=== PATIENT | female | born 1930 | race Caucasian/White ===

== ENCOUNTER 2017-11-16 10:05 | Inpatient (IN) | payer MEDICARE, OTHER ==
[2017-11-16] MEDS ORDERED: IODIXANOL LOCM 100 ML BTL (10:07)
[2017-11-16] MEDS ORDERED: SOD CHLORIDE 0.9% 100 ML (10:07)
[2017-11-16 10:19] LABS: ADD MAN DIFF? NO
[2017-11-16 10:24] LABS: WHITE BLOOD COUNT 7.2 10^3/ul (4.8-10.8)
[2017-11-16 10:24] LABS: BASOPHILS % 0.6 % (0.0-2.0); EOSINOPHILS # 0.4 10^3/ul (0.0-0.5); EOSINOPHILS % 5.2 % (0.0-7.0); HEMATOCRIT 24.2 % (37.0-47.0); HEMOGLOBIN 7.6 g/dl (12.0-16.0); LYMPHOCYTES # 1.5 10^3/ul (0.8-2.9); LYMPHOCYTES % 20.5 % (15.0-51.0); MEAN CORPUSCULAR HEMOGLOBIN 35.3 pg (29.0-33.0); MEAN CORPUSCULAR HGB CONC 31.4 g/dl (32.0-37.0); MEAN CORPUSCULAR VOLUME 112.6 fl (82.0-101.0); MEAN PLATELET VOLUME 11.4 fl (7.4-10.4); MONOCYTE # 0.8 10^3/ul (0.3-0.9); MONOCYTES % 10.5 % (0.0-11.0); NEUTROPHIL # 4.5 10^3/ul (1.6-7.5); NEUTROPHILS % 62.8 % (39.0-77.0); PLATELET COUNT 123 10^3/UL (140-415); RED BLOOD COUNT 2.15 10^6/ul (4.20-5.40); RED CELL DISTRIBUTION WIDTH 21.9 % (11.5-14.5)
[2017-11-16 10:41] LABS: INR 1.12; PROTIME 14.6 Sec (11.9-14.9); PT RATIO 1.1
[2017-11-16 10:42] LABS: ANION GAP 11 (8-16); BLOOD UREA NITROGEN 21 mg/dl (7-20); CALCIUM 8.7 mg/dl (8.4-10.2); CARBON DIOXIDE 29 mmol/L (21-31); CHLORIDE 101 mmol/L (97-110); CHOL/HDL RATIO 1.5 RATIO; CHOLESTEROL 106 mg/dl (100-200); CREATININE 1.89 mg/dl (0.44-1.00); GLUCOSE 149 mg/dl (70-220); HDL CHOLESTEROL 68 mg/dl (33-92); LDL CHOLESTEROL,CALCULATED 28 mg/dl; PARTIAL THROMBOPLASTIN TIME 43.9 Sec (25.0-35.0); SODIUM 138 mmol/L (135-144); TRIGLYCERIDES 49 mg/dl (0-149)
[2017-11-16 10:53] LABS: TROPONIN-I 0.039 ng/ml (0.00-0.12)
[2017-11-16] MEDS: POTASSIUM CHLORIDE (SR) 20 MEQ TAB PO (11:06)
[2017-11-16] MEDS: ASPIRIN 325 MG TAB PO (11:06)
[2017-11-16] MEDS: ASPIRIN 300 MG SUPP PR (11:22)
[2017-11-16] MEDS ORDERED: POTASSIUM CHLORIDE 50 ML IVPB (11:30)
[2017-11-16] MEDS ORDERED: ONDANSETRON 4 MG INJ IV ×2 (11:30→13:30)
[2017-11-16] MEDS ORDERED: ACETAMINOPHEN 325 MG TAB PO (11:30)
[2017-11-16] MEDS: POTASSIUM CHLORIDE 10 MEQ in SOD CHLORIDE 0.9% 50 ML IVPB (11:34)
[2017-11-16 13:29] LABS: RETICULOCYTE COUNT # 0.094 X10^6 (0.020-0.110); RETICULOCYTE COUNT % 4.3 % (0.5-1.5)
[2017-11-16 13:29] LABS: RETICULOCYTE RBC 2.16
[2017-11-16] MEDS ORDERED: GLUCOSE GEL 15 GRAM TUBE PO ×2 (13:30)
[2017-11-16] MEDS ORDERED: DEXTROSE 50% 50 ML SYRINGE IV ×2 (13:30)
[2017-11-16] MEDS ORDERED: MAGNESIUM HYDROXIDE 30ML CUP PO (13:30)
[2017-11-16] MEDS ORDERED: GLUCOSE GEL 15 GRAM TUBE BUCCAL (13:30)
[2017-11-16] MEDS ORDERED: NACL 0.9% 3 ML SYG IV (13:30)
[2017-11-16] MEDS ORDERED: ZOLPIDEM 5 MG TAB PO (13:30)
[2017-11-16] MEDS ORDERED: ACETAMINOPHEN 650 MG SUPP PR (13:30)
[2017-11-16] MEDS ORDERED: GLUCAGON 1 MG INJ IM (13:30)
[2017-11-16 13:31] LABS: IRON 66 ug/dl (35-150)
[2017-11-16 13:36] LABS: URIC ACID 1.9 mg/dl (3.1-7.9)
[2017-11-16 13:40] LABS: % IRON SATURATION 30 % SAT (22-52); TOTAL IRON BINDING CAPACITY 218 ug/dl (241-421)
[2017-11-16 14:03] LABS: AADO2 Arterial 41.1 mmHg (7.0-24.0); Allen Test ACCEPTAB; Arterial Base Excess 2.1 mmol/L (-3.0-3); Arterial Blood Gas Oxygen Sat 99.7 mmHG (95.0-100.0); Arterial Fraction of Oxyhgb 98.3 % (93.0-99.0); Arterial HCO3 27.5 mmol/L (22.0-26.0); Arterial MetHb 0.4 % (0.0-1.5); Arterial Total Hemglobin 8.5 g/dl (12.0-18.0); Arterial pCO2 47.5 mmhg (35-45); MODE MASK - SIMPLE; Site Right Radial
[2017-11-16 14:42] LABS: FOLATE 13.7 ng/ml (2.8-20.0)
[2017-11-16 17:25] LABS: CREATINE KINASE 58 IU/L (23-200)
[2017-11-16 17:38] LABS: CK INDEX 4.7; CK-MB 2.71 ng/ml (0.0-2.4); TROPONIN-I 0.037 ng/ml (0.00-0.12)
[2017-11-16] MEDS: SEVELAMER 800 MG TAB PO (17:39)
[2017-11-16] MEDS: INSULIN ASPART [NOVOLOG] 3 ML PEN SC ×2 (17:55→21:00)
[2017-11-16] MEDS ORDERED: PENDING SANTYL ORDER FOR WOUND CARE XX (18:30)
[2017-11-16] MEDS: ATORVASTATIN 40 MG TAB PO (21:00)
[2017-11-16] MEDS: SENNA TAB PO (21:00)
[2017-11-16] MEDS: CILOSTAZOL 100 MG TAB PO (21:00)
[2017-11-16] MEDS: HEPARIN 5,000 UNIT/0.5 ML VIAL SC (21:26)
[2017-11-16 23:56] LABS: CREATINE KINASE 60 IU/L (23-200)
[2017-11-17 00:09] LABS: CK-MB 3.01 ng/ml (0.0-2.4); TROPONIN-I 0.041 ng/ml (0.00-0.12)
[2017-11-17] MEDS: ACCU-CHEK XX (02:00)
[2017-11-17] MEDS: hydrALAzine 20 MG INJ IV ×2 (02:21→18:20)
[2017-11-17] MEDS: LEVOTHYROXINE 75 MCG TAB PO (07:00)
[2017-11-17 07:03] LABS: ADD MAN DIFF? NO
[2017-11-17 07:09] LABS: WHITE BLOOD COUNT 7.4 10^3/ul (4.8-10.8)
[2017-11-17 07:09] LABS: ABNORMAL IP MESSAGE 1; BASOPHIL # 0.1 10^3/ul (0.0-0.1); BASOPHILS % 0.8 % (0.0-2.0); EOSINOPHILS # 0.4 10^3/ul (0.0-0.5); EOSINOPHILS % 5.3 % (0.0-7.0); HEMATOCRIT 25.5 % (37.0-47.0); HEMOGLOBIN 8.1 g/dl (12.0-16.0); LYMPHOCYTES # 1.5 10^3/ul (0.8-2.9); LYMPHOCYTES % 19.9 % (15.0-51.0); MEAN CORPUSCULAR HEMOGLOBIN 35.8 pg (29.0-33.0); MEAN CORPUSCULAR HGB CONC 31.8 g/dl (32.0-37.0); MEAN CORPUSCULAR VOLUME 112.8 fl (82.0-101.0); MEAN PLATELET VOLUME 10.9 fl (7.4-10.4); MONOCYTE # 0.7 10^3/ul (0.3-0.9); MONOCYTES % 8.8 % (0.0-11.0); NEUTROPHIL # 4.8 10^3/ul (1.6-7.5); NEUTROPHILS % 64.8 % (39.0-77.0); PLATELET COUNT 132 10^3/UL (140-415); RED BLOOD COUNT 2.26 10^6/ul (4.20-5.40); RED CELL DISTRIBUTION WIDTH 22.3 % (11.5-14.5)
[2017-11-17 07:15] LABS: HEMOGLOBIN A1C 4.9 % (0-5.9)
[2017-11-17 07:19] LABS: POSITIVE DIFF @See below
[2017-11-17 07:25] LABS: ALANINE AMINOTRANSFERASE 21 IU/L (13-69); ALBUMIN 3.3 g/dl (3.3-4.9); ALBUMIN/GLOBULIN RATIO 0.84; ALKALINE PHOSPHATASE 113 IU/L (42-121); ANION GAP 13 (8-16); ASPARTATE AMINO TRANSFERASE 32 IU/L (15-46); BLOOD UREA NITROGEN 26 mg/dl (7-20); CALCIUM 9.3 mg/dl (8.4-10.2); CARBON DIOXIDE 25 mmol/L (21-31); CHLORIDE 103 mmol/L (97-110); CHOL/HDL RATIO 1.6 RATIO; CHOLESTEROL 113 mg/dl (100-200); GLUCOSE 75 mg/dl (70-220); HDL CHOLESTEROL 68 mg/dl (33-92); LDL CHOLESTEROL,CALCULATED 25 mg/dl; MAGNESIUM 1.8 mg/dl (1.7-2.5); PHOSPHORUS 4.3 mg/dl (2.5-4.9); POTASSIUM 3.2 mmol/L (3.5-5.1); SODIUM 138 mmol/L (135-144); TOTAL PROTEIN 7.2 g/dl (6.1-8.1); TRIGLYCERIDES 98 mg/dl (0-149)
[2017-11-17] MEDS: INSULIN ASPART [NOVOLOG] 3 ML PEN SC ×4 (07:55→20:31)
[2017-11-17] MEDS: INFLUENZA VIRUS VACCINE 0.5 ML SYG IM* (09:00)
[2017-11-17] MEDS: SEVELAMER 800 MG TAB PO ×3 (09:41→17:55)
[2017-11-17] MEDS: CILOSTAZOL 100 MG TAB PO ×2 (09:42→20:32)
[2017-11-17] MEDS: MULTIVITAMINS THERAPEUTIC TAB PO (09:42)
[2017-11-17] MEDS: ASPIRIN 81 MG TAB PO (09:42)
[2017-11-17] MEDS: PANTOPRAZOLE (EC) 40 MG TAB PO (09:43)
[2017-11-17] MEDS: SENNA TAB PO ×2 (09:43→20:32)
[2017-11-17] MEDS: HEPARIN 5,000 UNIT/0.5 ML VIAL SC ×2 (10:12→20:45)
[2017-11-17] MEDS: POTASSIUM CHLORIDE (SR) 20 MEQ TAB PO (12:19)
[2017-11-17] MEDS ORDERED: LACTULOSE 30ML CUP PO (13:00)
[2017-11-17 17:26] LABS: TRANSFERRIN 148 mg/dL (188-341)
[2017-11-17] MEDS ORDERED: HEPARIN 1000 UNITS/ML 10 ML INJ CATHETER (17:30)
[2017-11-17 17:59] LABS: HEPATITIS B SURFACE ANTIBODY NEGATIVE (NEGATIVE)
[2017-11-17] MEDS: PANTOPRAZOLE 40 MG INJ IV ×2 (18:00→18:12)
[2017-11-17] MEDS: HEPARIN 1000 UNITS/ML 10 ML INJ CATHETER (18:09)
[2017-11-17 18:14] LABS: HEPATITIS B SURFACE ANTIGEN NEGATIVE (NEGATIVE)
[2017-11-17] MEDS: ATORVASTATIN 40 MG TAB PO (20:32)
[2017-11-17] MEDS: FAMOTIDINE 20 MG TAB PO (20:32)
[2017-11-17] MEDS: ACETAMINOPHEN 325 MG TAB PO (22:24)
[2017-11-18] MEDS: LORAZEPAM 2 MG INJ IV ×2 (00:23→21:36)
[2017-11-18] MEDS: ACCU-CHEK XX (02:00)
[2017-11-18] MEDS: PANTOPRAZOLE (EC) 40 MG TAB PO (06:00)
[2017-11-18] MEDS: PANTOPRAZOLE 40 MG INJ IV (06:41)
[2017-11-18] MEDS: LEVOTHYROXINE 112 MCG TAB PO (06:41)
[2017-11-18] MEDS: INSULIN ASPART [NOVOLOG] 3 ML PEN SC ×4 (07:55→21:50)
[2017-11-18] MEDS: CILOSTAZOL 100 MG TAB PO ×2 (08:14→21:05)
[2017-11-18] MEDS: SEVELAMER 800 MG TAB PO ×3 (08:15→18:00)
[2017-11-18] MEDS: MULTIVITAMINS THERAPEUTIC TAB PO (08:15)
[2017-11-18] MEDS: ASPIRIN 81 MG TAB PO (08:15)
[2017-11-18] MEDS: SENNA TAB PO ×2 (08:15→21:05)
[2017-11-18] MEDS: HEPARIN 5,000 UNIT/0.5 ML VIAL SC ×2 (08:28→21:12)
[2017-11-18] MEDS: VALSARTAN 80 MG TAB PO (08:40)
[2017-11-18] MEDS ORDERED: LACTULOSE 30ML CUP PO (09:00)
[2017-11-18 11:46] LABS: ALANINE AMINOTRANSFERASE 15 IU/L (13-69); ALBUMIN 3.6 g/dl (3.3-4.9); ALKALINE PHOSPHATASE 108 IU/L (42-121); ANION GAP 14 (8-16); ASPARTATE AMINO TRANSFERASE 33 IU/L (15-46); BILIRUBIN,INDIRECT 0.2 mg/dl (0-1.1); BILIRUBIN,TOTAL 0.2 mg/dl (0.2-1.3); BLOOD UREA NITROGEN 20 mg/dl (7-20); CALCIUM 9.2 mg/dl (8.4-10.2); CARBON DIOXIDE 27 mmol/L (21-31); CHLORIDE 100 mmol/L (97-110); CREATININE 2.19 mg/dl (0.44-1.00); GLUCOSE 165 mg/dl (70-220); POTASSIUM 3.7 mmol/L (3.5-5.1); SODIUM 137 mmol/L (135-144); TOTAL PROTEIN 7.6 g/dl (6.1-8.1)
[2017-11-18 11:57] LABS: TROPONIN-I 0.053 ng/ml (0.00-0.12)
[2017-11-18] MEDS: ATORVASTATIN 40 MG TAB PO (21:05)
[2017-11-18] MEDS: FAMOTIDINE 20 MG TAB PO (21:05)
[2017-11-19] MEDS: ACCU-CHEK XX (02:25)
[2017-11-19] MEDS: INSULIN ASPART [NOVOLOG] 3 ML PEN SC ×4 (07:55→20:54)
[2017-11-19] MEDS: MULTIVITAMINS THERAPEUTIC TAB PO (08:12)
[2017-11-19] MEDS: PANTOPRAZOLE (EC) 40 MG TAB PO (08:12)
[2017-11-19] MEDS: ASPIRIN 81 MG TAB PO (08:12)
[2017-11-19] MEDS: SEVELAMER 800 MG TAB PO ×3 (08:12→17:20)
[2017-11-19] MEDS: LEVOTHYROXINE 112 MCG TAB PO (08:14)
[2017-11-19] MEDS: SENNA TAB PO ×2 (08:14→20:45)
[2017-11-19] MEDS: CILOSTAZOL 100 MG TAB PO ×2 (08:14→20:44)
[2017-11-19] MEDS: VALSARTAN 80 MG TAB PO (08:16)
[2017-11-19] MEDS: HEPARIN 5,000 UNIT/0.5 ML VIAL SC ×2 (08:26→20:51)
[2017-11-19 10:00] LABS: ADD MAN DIFF? NO
[2017-11-19 10:02] LABS: ABNORMAL IP MESSAGE 1; BASOPHILS % 0.5 % (0.0-2.0); EOSINOPHILS # 0.4 10^3/ul (0.0-0.5); EOSINOPHILS % 4.7 % (0.0-7.0); HEMATOCRIT 22.4 % (37.0-47.0); HEMOGLOBIN 7.1 g/dl (12.0-16.0); LYMPHOCYTES # 1.5 10^3/ul (0.8-2.9); LYMPHOCYTES % 19.8 % (15.0-51.0); MEAN CORPUSCULAR HEMOGLOBIN 35.3 pg (29.0-33.0); MEAN CORPUSCULAR HGB CONC 31.7 g/dl (32.0-37.0); MEAN CORPUSCULAR VOLUME 111.4 fl (82.0-101.0); MEAN PLATELET VOLUME 10.9 fl (7.4-10.4); MONOCYTE # 0.7 10^3/ul (0.3-0.9); MONOCYTES % 8.7 % (0.0-11.0); NEUTROPHIL # 4.9 10^3/ul (1.6-7.5); PLATELET COUNT 95 10^3/UL (140-415); RED BLOOD COUNT 2.01 10^6/ul (4.20-5.40); RED CELL DISTRIBUTION WIDTH 21.2 % (11.5-14.5)
[2017-11-19 10:02] LABS: WHITE BLOOD COUNT 7.5 10^3/ul (4.8-10.8)
[2017-11-19 10:07] LABS: POSITIVE DIFF @See below
[2017-11-19 10:24] LABS: ALANINE AMINOTRANSFERASE 16 IU/L (13-69); ALBUMIN 3.1 g/dl (3.3-4.9); ALBUMIN/GLOBULIN RATIO 0.79; ALKALINE PHOSPHATASE 96 IU/L (42-121); ANION GAP 12 (8-16); ASPARTATE AMINO TRANSFERASE 30 IU/L (15-46); BILIRUBIN,INDIRECT 0.2 mg/dl (0-1.1); BILIRUBIN,TOTAL 0.2 mg/dl (0.2-1.3); BLOOD UREA NITROGEN 25 mg/dl (7-20); CALCIUM 8.9 mg/dl (8.4-10.2); CARBON DIOXIDE 28 mmol/L (21-31); CHLORIDE 100 mmol/L (97-110); CREATININE 2.79 mg/dl (0.44-1.00); GLUCOSE 146 mg/dl (70-220); POTASSIUM 3.9 mmol/L (3.5-5.1); SODIUM 136 mmol/L (135-144)
[2017-11-19 10:35] LABS: TROPONIN-I 0.049 ng/ml (0.00-0.12)
[2017-11-19] MEDS: HEPARIN 1000 UNITS/ML 10 ML INJ CATHETER (12:05)
[2017-11-19] MEDS: CYANOCOBALAMIN 100 MCG TAB PO (13:56)
[2017-11-19] MEDS: EPOETIN 10000 UNITS/1 ML INJ (ESRD) SC (17:21)
[2017-11-19] MEDS: ACETAMINOPHEN 325 MG TAB PO (17:44)
[2017-11-19] MEDS: ATORVASTATIN 40 MG TAB PO (20:45)
[2017-11-19] MEDS: FAMOTIDINE 20 MG TAB PO (20:45)
[2017-11-20] MEDS: ACCU-CHEK XX (02:00)
[2017-11-20] MEDS: LEVOTHYROXINE 112 MCG TAB PO (05:52)
[2017-11-20] MEDS: PANTOPRAZOLE (EC) 40 MG TAB PO (05:52)
[2017-11-20 07:32] LABS: ADD MAN DIFF? NO
[2017-11-20 07:35] LABS: BASOPHILS % 0.6 % (0.0-2.0); EOSINOPHILS # 0.4 10^3/ul (0.0-0.5); EOSINOPHILS % 5.1 % (0.0-7.0); HEMATOCRIT 22.5 % (37.0-47.0); HEMOGLOBIN 7.1 g/dl (12.0-16.0); LYMPHOCYTES % 14.1 % (15.0-51.0); MEAN CORPUSCULAR HEMOGLOBIN 35.7 pg (29.0-33.0); MEAN CORPUSCULAR HGB CONC 31.6 g/dl (32.0-37.0); MEAN CORPUSCULAR VOLUME 113.1 fl (82.0-101.0); MEAN PLATELET VOLUME 11.2 fl (7.4-10.4); MONOCYTE # 0.7 10^3/ul (0.3-0.9); NEUTROPHIL # 4.9 10^3/ul (1.6-7.5); NEUTROPHILS % 69.9 % (39.0-77.0); PLATELET COUNT 108 10^3/UL (140-415); RED BLOOD COUNT 1.99 10^6/ul (4.20-5.40); RED CELL DISTRIBUTION WIDTH 21.3 % (11.5-14.5)
[2017-11-20] MEDS: INSULIN ASPART [NOVOLOG] 3 ML PEN SC ×4 (07:55→20:54)
[2017-11-20 08:02] LABS: ANION GAP 11 (8-16); BLOOD UREA NITROGEN 15 mg/dl (7-20); CALCIUM 8.6 mg/dl (8.4-10.2); CARBON DIOXIDE 31 mmol/L (21-31); CHLORIDE 100 mmol/L (97-110); CREATININE 2.08 mg/dl (0.44-1.00); GLUCOSE 112 mg/dl (70-220); MAGNESIUM 1.7 mg/dl (1.7-2.5); POTASSIUM 3.6 mmol/L (3.5-5.1); SODIUM 138 mmol/L (135-144)
[2017-11-20] MEDS: SOD CHLORIDE 0.9% 250 ML IV* (08:23)
[2017-11-20] MEDS: SENNA TAB PO ×2 (09:00→20:52)
[2017-11-20] MEDS: MULTIVITAMINS THERAPEUTIC TAB PO (09:03)
[2017-11-20] MEDS: CYANOCOBALAMIN 100 MCG TAB PO (09:03)
[2017-11-20] MEDS: SEVELAMER 800 MG TAB PO ×3 (09:03→17:08)
[2017-11-20] MEDS: VALSARTAN 80 MG TAB PO (09:03)
[2017-11-20] MEDS: CILOSTAZOL 100 MG TAB PO ×2 (09:03→20:52)
[2017-11-20] MEDS: ASPIRIN 81 MG TAB PO (09:03)
[2017-11-20] MEDS: HEPARIN 5,000 UNIT/0.5 ML VIAL SC ×2 (09:25→20:54)
[2017-11-20] MEDS ORDERED: PENDING SANTYL ORDER FOR WOUND CARE XX (13:00)
[2017-11-20 18:58] LABS: IMMEDIATE SPIN CROSSMATCH 1 2
[2017-11-20] MEDS: ACETAMINOPHEN 325 MG TAB PO (20:45)
[2017-11-20] MEDS: FAMOTIDINE 20 MG TAB PO (20:52)
[2017-11-20] MEDS: ATORVASTATIN 40 MG TAB PO (20:52)
[2017-11-20] MEDS ORDERED: HEPARIN 1000 UNITS/ML 10 ML INJ (21:04)
[2017-11-20] MEDS: HEPARIN 1000 UNITS/ML 10 ML INJ CATHETER (21:07)
[2017-11-21] MEDS: GABAPENTIN 300 MG CAP PO ×3 (01:42→12:44)
[2017-11-21] MEDS: ACCU-CHEK XX (02:00)
[2017-11-21] MEDS: INSULIN ASPART [NOVOLOG] 3 ML PEN SC ×4 (02:44→17:12)
[2017-11-21] MEDS: ACETAMINOPHEN 325 MG TAB PO (03:33)
[2017-11-21] MEDS: PANTOPRAZOLE (EC) 40 MG TAB PO (05:41)
[2017-11-21] MEDS: LEVOTHYROXINE 112 MCG TAB PO (05:41)
[2017-11-21] MEDS: CILOSTAZOL 100 MG TAB PO (08:56)
[2017-11-21] MEDS: SEVELAMER 800 MG TAB PO ×3 (08:56→17:17)
[2017-11-21] MEDS: VALSARTAN 80 MG TAB PO (08:56)
[2017-11-21] MEDS: ASPIRIN 81 MG TAB PO (08:56)
[2017-11-21] MEDS: CYANOCOBALAMIN 100 MCG TAB PO (08:56)
[2017-11-21] MEDS: SENNA TAB PO (08:57)
[2017-11-21] MEDS: MULTIVITAMINS THERAPEUTIC TAB PO (08:57)
[2017-11-21] MEDS: HEPARIN 5,000 UNIT/0.5 ML VIAL SC (09:06)
[2017-11-21 11:20] LABS: ADD MAN DIFF? NO
[2017-11-21 11:26] LABS: WHITE BLOOD COUNT 7.1 10^3/ul (4.8-10.8)
[2017-11-21 11:26] LABS: ABNORMAL IP MESSAGE 1; BASOPHIL # 0.1 10^3/ul (0.0-0.1); EOSINOPHILS # 0.5 10^3/ul (0.0-0.5); EOSINOPHILS % 6.4 % (0.0-7.0); HEMATOCRIT 29.9 % (37.0-47.0); HEMOGLOBIN 9.9 g/dl (12.0-16.0); LYMPHOCYTES # 1.3 10^3/ul (0.8-2.9); MEAN CORPUSCULAR HEMOGLOBIN 34.5 pg (29.0-33.0); MEAN CORPUSCULAR HGB CONC 33.1 g/dl (32.0-37.0); MEAN CORPUSCULAR VOLUME 104.2 fl (82.0-101.0); MEAN PLATELET VOLUME 11.4 fl (7.4-10.4); MONOCYTE # 0.7 10^3/ul (0.3-0.9); NEUTROPHIL # 4.5 10^3/ul (1.6-7.5); NEUTROPHILS % 64.2 % (39.0-77.0); PLATELET COUNT 113 10^3/UL (140-415); RED BLOOD COUNT 2.87 10^6/ul (4.20-5.40); RED CELL DISTRIBUTION WIDTH 22.9 % (11.5-14.5)
[2017-11-21 11:29] LABS: POSITIVE DIFF @See below
[2017-11-21 11:52] LABS: ANION GAP 13 (8-16); BLOOD UREA NITROGEN 11 mg/dl (7-20); CALCIUM 9.1 mg/dl (8.4-10.2); CARBON DIOXIDE 26 mmol/L (21-31); CHLORIDE 99 mmol/L (97-110); CREATININE 2.06 mg/dl (0.44-1.00); GLUCOSE 167 mg/dl (70-220); POTASSIUM 3.6 mmol/L (3.5-5.1); SODIUM 134 mmol/L (135-144)
[2017-11-21] MEDS: HEPARIN 1000 UNITS/ML 10 ML INJ CATHETER (15:27)
[2017-11-21] MEDS: EPOETIN 10000 UNITS/1 ML INJ (ESRD) SC (17:18)
[2017-11-21] MEDS: hydrALAzine 20 MG INJ IV (18:13)
== END 2017-11-21 18:45 | DRG 64 ==
LOC: E/R 10:05 → TEL 11:15
PROC: 4A00X4Z Measurement of Central Nervous Electrical Activity, External Approach (ICD-10-PCS; principal; 2017-11-16)
PROC: 4A033R1 Measurement of Arterial Saturation, Peripheral, Percutaneous Approach (ICD-10-PCS; 2017-11-16)
PROC: 5A1D70Z Performance of Urinary Filtration, Intermittent, Less than 6 Hours Per Day (ICD-10-PCS; 2017-11-17)
DX: I63.9 Cerebral infarction, unspecified (principal); I50.33 Acute on chronic diastolic (congestive) heart failure; N18.6 End stage renal disease; G92 Toxic encephalopathy; G81.91 Hemiplegia, unspecified affecting right dominant side; I13.2 Hypertensive heart and chronic kidney disease with heart failure and with stage 5 chronic kidney disease, or end stage renal disease; Q21.1 Atrial septal defect; J90 Pleural effusion, not elsewhere classified; E66.9 Obesity, unspecified; Z68.32 Body mass index [BMI] 32.0-32.9, adult; K59.00 Constipation, unspecified; R07.89 Other chest pain; R29.810 Facial weakness; E03.9 Hypothyroidism, unspecified; D63.1 Anemia in chronic kidney disease; E11.22 Type 2 diabetes mellitus with diabetic chronic kidney disease; K21.9 Gastro-esophageal reflux disease without esophagitis; E11.69 Type 2 diabetes mellitus with other specified complication; E78.5 Hyperlipidemia, unspecified; E87.6 Hypokalemia; I25.10 Atherosclerotic heart disease of native coronary artery without angina pectoris; E11.51 Type 2 diabetes mellitus with diabetic peripheral angiopathy without gangrene; L89.620 Pressure ulcer of left heel, unstageable; Z99.2 Dependence on renal dialysis; Z79.82 Long term (current) use of aspirin; Z79.4 Long term (current) use of insulin
CPT/HCPCS: 36415; 36430; 36600; 70450; 70496; 70498; 70551; 71045; 71250; 74018; 76604; 76700; 76775; 80048; 80053; 80061; 82550; 82553; 82607; 82728; 82746; 82803; 82962; 83036; 83540; 83735; 84100; 84443; 84466; 84484; 84560; 85025; 85045; 85610; 85730; 86644; 86706; 86850; 86900; 86901; 86920; 87040; 87081; 87340; 90935; 92526; 92610; 93005; 93306; 95819; 96374; 97162; 97166; 97535; 99291-25